=== PATIENT | female | born 1955 | race Hispanic/Latino ===

== ENCOUNTER 2024-07-02 05:34 | Day surgery (SDC) | payer MEDICARE ==
[2024-07-01 12:42] VITALS: BP 138/70; PULSE 77; RESP 16; TEMP 97.4
[2024-07-01 12:43] LABS: BASOPHILS # (AUTO) 0.03 K/uL (0.00-0.20); BASOPHILS % (AUTO) 0.5 % (0.0-5.0); EOSINOPHILS # (AUTO) 0.14 K/uL (0.00-0.70); EOSINOPHILS % (AUTO) 2.2 % (0.0-8.0); HEMATOCRIT 36.2 % (36-48); IMMATURE GRANULOCYTE ABSOLUTE 0.02 K/uL (0-1); LYMPHOCYTES # (AUTO) 1.4 K/uL (1.0-4.8); LYMPHOCYTES % (AUTO) 22.1 % (21.0-51.0); MEAN CORPUSCULAR HEMOGLOBIN 28.3 pg (27.0-33.0); MEAN CORPUSCULAR HGB CONC 31.5 g/dL (32.0-36.0); MEAN CORPUSCULAR VOLUME 89.8 fL (79-99); MONOCYTES # (AUTO) 0.6 K/uL (0.1-1.0); MONOCYTES % (AUTO) 9.2 % (3.0-13.0); NEUTROPHILS # (AUTO) 4.2 K/uL (1.8-7.7); NEUTROPHILS % (AUTO) 65.7 % (40.0-77.0); PLATELET COUNT (AUTO) 279 K/uL (130-400); RED BLOOD CELL COUNT(AUTO) 4.03 MIL/uL (4.00-5.50); RED CELL DISTRIBUTION WIDTH 15.3 % (11.0-15.5); WHITE BLOOD COUNT (AUTO) 6.4 K/uL (4.8-10.8)
[2024-07-01 13:02] LABS: ALBUMIN 3.5 g/dL (3.5-5.0); BILIRUBIN,TOTAL 0.4 mg/dL (0.2-1.0); CREATININE 1.5 mg/dL (0.5-1.0); POTASSIUM 4.1 mmol/L (3.5-5.1); TOTAL PROTEIN, SERUM 8.2 g/dL (6.0-8.3)
[2024-07-02] VITALS (16 sets, daily range): BP systolic 130–156; BP diastolic 66–77; PULSE 79–92; RESP 13–18; TEMP 97.2–97.8
[~2024-07-02] VITALS: Ht 157.5 cm; Wt 106.7 kg
[~2024-07-02 05:34] MED LIST: OLME20TA68 PO; PROP20TA96 PO
[2024-07-02 07:02] LABS: INR 0.99 (0.85-1.15); PROTHROMBIN TIME 10.7 SEC (9.6-11.6)
[2024-07-02 07:03] LABS: PARTIAL THROMBOPLASTIN TIME 26.4 SEC (26.3-35.5)
[2024-07-02] MEDS: ceFAZolin SODIUM 2 GM VIAL ONE (08:04)
[2024-07-02] MEDS: ceFAZolin SODIUM 1 GM VIAL ONE (08:04)
[2024-07-02] MEDS: LACTATED RINGERS 1000ML 1,000 ML IV ONE (08:05)
[2024-07-02] MEDS ORDERED: ONDA-245 PO (08:13)
[2024-07-02] MEDS ORDERED: ERGO500093 PO (08:13)
[2024-07-02] MEDS ORDERED: METR-172 PO (08:13)
[2024-07-02] MEDS ORDERED: FAMO40TA7 PO (08:13)
[2024-07-02] MEDS ORDERED: neomycin PO (08:13)
[2024-07-02] MEDS ORDERED: AMIT50TA3 PO (08:13)
[2024-07-02] MEDS ORDERED: SUCCINYLCHOLINE CHLORIDE 20 MG/ML 10 ML VIAL ONE (08:57)
[2024-07-02] MEDS ORDERED: MIDAZOLAM HCL 1 MG/ML 2ML VIAL ONE (08:57)
[2024-07-02] MEDS ORDERED: dexaMETHasone SOD PHOSPHATE 10MG/ML 1ML VIAL ONE (08:57)
[2024-07-02] MEDS ORDERED: LIDOCAINE HCL MPF 1% 5ML VIAL ONE (08:57)
[2024-07-02] MEDS ORDERED: proPOFol 10 MG/ML 20ML VIAL IV ONE (08:57)
[2024-07-02] MEDS ORDERED: rocuRONium bROMide 10MG/1ML 5ML VL ONE (08:58)
[2024-07-02] MEDS ORDERED: FENTanyl CITRate PF 50 MCG/1 ML 2ML VIAL ONE (09:00)
[2024-07-02] MEDS ORDERED: ketaMINE 50MG/ML SYRINGE 50 MG/ML DISP.SYRIN ONE (09:02)
[2024-07-02] MEDS: SCOPOLAMINE HYDROBROMIDE 1 EACH ADH..PATCH TD ONE (09:02)
[2024-07-02] MEDS ORDERED: LIDOCAINE HCL 4% LTA SOL 4 ML VIAL ONE (09:03)
[2024-07-02] MEDS: BUPIvacaine/PF 0.25% 30ML VIAL IJ ONE (09:58)
[2024-07-02] MEDS: LIDOCAINE 1%-EPI 1:100,000 20 ML VIAL ONE (09:58)
[2024-07-02] MEDS ORDERED: ONDANSETRON 4MG INJ ONE (10:29)
[2024-07-02] MEDS ORDERED: NEOSTIGMINE METHYLSULFATE 1MG/ML IV ONE (10:29)
[2024-07-02] MEDS ORDERED: GLYCOPYRROLATE 0.2 MG/ML 5 ML VIAL ONE (10:29)
[2024-07-02] MEDS: acetaMINOPHEN 1,000 MG/100 ML VIAL IV ONE (11:10)
[2024-07-02] MEDS: ONDANSETRON 4MG INJ ONE (11:10)
[2024-07-02] MEDS: MEPERIDINE-PF 25 MG/ML SYG ONE (11:12)
== END 2024-07-02 11:45 | disposition home or self-care (01) ==
LOC: DAH 05:34
PROVIDERS: ATTEND Surgery
DX: N82.3 Fistula of vagina to large intestine (principal); I10 Essential (primary) hypertension; E66.9 Obesity, unspecified; F41.9 Anxiety disorder, unspecified; F32.A Depression, unspecified; E03.9 Hypothyroidism, unspecified; Z98.84 Bariatric surgery status; Z98.49 Cataract extraction status, unspecified eye; Z79.01 Long term (current) use of anticoagulants; Z79.899 Other long term (current) drug therapy; Z68.41 Body mass index [BMI] 40.0-44.9, adult
CPT/HCPCS: 80053; 85025; 85730 ×2; 36415 ×2; 93005; 46288; 85610; A6260; A4663; J7120 ×2; A4344; J3010; J0690; J3490 ×5; J1100; J0330; J0665; J2250; J2704; J2405 ×2; J2710; J2175; A4930; A4215; A4223; A4657; A4213; A4222; A4221; A4600